=== PATIENT | female | born 1955 | race American Indian/Alaskan Native ===

== ENCOUNTER 2016-09-27 11:29 | Day surgery (SDC) | payer OTHER, BC ==
[~2016-09-27] VITALS: Ht 160 cm; Wt 101.0 kg
[~2016-09-27 11:29] MED LIST: CEFAZOLIN IV 1,000 MG in DEXTROSE 5% 50ML IV SCH; LACTATED RINGER'S 1000ML IV SCH; PATIENT'S ALLERGY INFO NEEDS ENTERED SCH
[2016-09-27 12:20] VITALS: Ht 160 cm; Wt 101.0 kg
[2016-09-27] MEDS ORDERED: CALC500C70 PO (12:28)
[2016-09-27] MEDS ORDERED: CITA10TA8 PO (12:28)
[2016-09-27] MEDS ORDERED: METO1TAB69 PO (12:28)
[2016-09-27] MEDS ORDERED: SYMIN/8045 INH (12:28)
[2016-09-27] MEDS ORDERED: mega red PO (12:28)
[2016-09-27] MEDS ORDERED: ASPI81TA28 PO (12:28)
[2016-09-27] MEDS ORDERED: albuterol inhaler INH (12:28)
[2016-09-27] MEDS ORDERED: LISI-725 PO (12:28)
[2016-09-27] MEDS ORDERED: ASPI-390 PO (12:31)
[2016-09-27] MEDS ORDERED: LIDOCAINE HCL 1% 20 ML VIAL ONE (13:27)
--- NOTE | 2016-09-27 13:42 | History & Physical Bridge Note ---
H&P Re-Evaluation Bridge Note: I have examined the patient, reviewed the History & Physical and in the interval since the performance of the History & Physical I have noted the following changes of clinical significance: No changes noted. I reviewed the indications, procedure, risks and alternatives with her and her family and they understand and she agrees to proceed. Consent obtained.
--- NOTE | 2016-09-27 13:45 | Procedure Note ---
Pre-Mod Sedation Assessment General Date of Moderate Sedation: Sep 27, 2016. Review Cardiovascular: regular rate, rhythm Abdomen: normal bowel sounds Lungs: lungs clear Pre-Sedation Airway Assessment Oral Cavity: WNL Smoking Status: Former Smoker Procedure Planning Contraindications-for Mod Sed: None Yes Notes The planned sedation has been discussed with the patient and consent obtained. I have identified the patient, determined the appropriateness of sedation and have assessed the patient immediately prior to the procedure. All medicine(s) and interventions are by my order.
[2016-09-27] MEDS ORDERED: FENTANYL CITRATE INJ 50 MCG/1 ML 2 ML VIAL ONE (13:49)
[2016-09-27] MEDS ORDERED: MIDAZOLAM HCL 1 MG/ML 2ML VIAL ONE (13:50)
[2016-09-27] MEDS ORDERED: BACITRACIN OINT 0.9 GM PKT ONE (14:05)
--- NOTE | 2016-09-27 14:17 | Cardiology Procedure Brief Nt ---
Preliminary Cardiology Note Procedure Date Sep 27, 2016. Pre-Procedure Diagnosis paroxysmal atrial fibrillation Post-Procedure Diagnosis same Procedure(s) Performed Loop recorder implantation Oil Inspector Dr. Blackwell Executive Relations Specialist(s) none Estimated Blood Loss 2 cc Preliminary Findings Good position Recommendations Monitor very briefly and discharge Specimens None Anesthesia local without sedation Complication(s) None Disposition MTU
--- NOTE | 2016-09-27 14:22 | Discharge Instructions ---
Discharge Instructions Admission Reason for Admission: Paroxysmal atrial fibrillation Discharge Discharge Diagnosis / Problem: loop recorder implantation Discharge Goals Goal(s): Diagnostic testing Activity Recommendations Activity Limitations: resume your previous activity . Instructions / Follow-Up Instructions / Follow-Up ACTIVITY RECOMMENDATIONS: * Do not raise affected arm over head for 2 weeks. SPECIAL CARE INSTRUCTIONS: * If bleeding occurs, apply direct pressure to area for 5 minutes. * Call your doctor if you have severe pain, fever, drainage or bleeding at site. * Keep dressing on and dry. * Keep any scheduled doctor's appointment. * Implant Card - hand held device with website information given. FOLLOW UP VISIT: Dr. Blackwell 09/28/2016, 10:30 AM Current Hospital Diet Patient's current hospital diet: AHA Diet (Heart Healthy) Discharge Diet Recommended Diet: AHA Diet (Heart Healthy) Pending Studies Studies pending at discharge: no Medical Emergencies . Who to Call and When: Medical Emergencies: If at any time you feel your situation is an emergency, please call 911 immediately. . Non-Emergent Contact Non-Emergency issues call your: Primary Care Provider . . "Provider Documentation" section prepared by Rodríguez Blackwell. VTE Core Measure Inpt VTE Proph given/why not?: Treatment not indicated
[2016-09-27 14:25] VITALS: BP 131/79; PULSE 56; TEMP 36.8; O2SAT 94
[2016-09-27] MEDS ORDERED: ACETAMINOPHEN 325 MG TAB PO PRN (14:30)
[2016-09-27 14:54] VITALS: BP 115/82; PULSE 63; TEMP 36.5; O2SAT 94
--- NOTE | 2016-09-27 15:11 | OPERATIVE REPORT ---
DATE OF OPERATION: 09/27/2016 AMBULATORY OPERATIVE REPORT PREOPERATIVE DIAGNOSIS: Paroxysmal atrial fibrillation. POSTOPERATIVE DIAGNOSIS: Same. PROCEDURE: Loop recorder implantation. HISTORY: This is a 60-year-old woman who carries a diagnosis of paroxysmal atrial fibrillation; however, the frequency and extent are unknown. She has palpitations but on evaluation, her palpitations mostly coincide with premature beats and runs of paroxysmal atrial tachycardia. She should be on anticoagulation if she has atrial fibrillation but it is not clear that she has any significant amount of atrial fibrillation. She is therefore brought to the laboratory for loop recorder implantation to identify frequency and duration of atrial fibrillation. OPERATION AND FINDINGS: After obtaining informed consent for the procedure, she was brought to the laboratory on the afternoon of 09/27/2016, being n.p.o. after midnight. She was identified in the laboratory, prepped and draped in standard sterile manner for a loop recorder implantation. The left prepectoral region was anesthetized with 1% lidocaine local anesthetic and a 1 cm incision was made at a location about 1 cm to the left of the left sternal border at around the fourth intercostal space. Using the insertion tool, a loop recorder was placed subcutaneously. The incision was closed with a subcutaneous closure of 4-0 Vicryl, followed by a running subcuticular skin closure of 4-0 Vicryl. A Steri-Strip was applied, bacitracin ointment was applied and the site was dressed. The patient tolerated the procedure well, there were no complications and estimated blood loss was 2 mL. The patient was transferred back to the MTU for brief observation prior to discharge. She tolerated the procedure well, there were no complications. The loop recorder is a [employer] LINQ, model LNQ11, serial number [id number]. The device was programmed in the laboratory. ROBERTO
== END 2016-09-27 15:00 | disposition home or self-care (01) ==
LOC: C.ACU 11:29
PROVIDERS: ATTEND Internal Medicine Cardiovascular Disease
DX: I48.0 Paroxysmal atrial fibrillation (principal); R00.1 Bradycardia, unspecified; I25.10 Atherosclerotic heart disease of native coronary artery without angina pectoris; I25.2 Old myocardial infarction; I34.0 Nonrheumatic mitral (valve) insufficiency; I10 Essential (primary) hypertension; E78.5 Hyperlipidemia, unspecified

== ENCOUNTER → 2017-07-22 | Outpatient (CLI) | payer BC, OTHER ==
[~2017-07-22] MED LIST changes: +ASPI-390 PO; +ASPI81TA28 PO; +CALC500C70 PO; -CEFAZOLIN IV 1,000 MG in DEXTROSE 5% 50ML IV SCH; +CITA10TA8 PO; -LACTATED RINGER'S 1000ML IV SCH; +LISI-725 PO; +METO100T44 PO; -PATIENT'S ALLERGY INFO NEEDS ENTERED SCH; +SYMIN/8045 INH; +albuterol inhaler INH; +mega red PO
[2017-07-22 12:46] LABS: BASO % 0.1 %; BASO ABS # 0.01 K/uL (0-0.2); COMPLETE YES; EOS % 3.1 %; HEMATOCRIT 41.2 % (37-47); IG% 0.1 %; LYMPH % 37.3 %; LYMPH ABS # 3.13 K/uL (1.2-3.4); MEAN CELL VOLUME 92.8 fL (80-100); MEAN CORPUSCULAR HEMOGLOBIN 30.4 pg (25-34); MEAN CORPUSCULAR HGB CONC 32.8 g/dl (32-36); MEAN PLATELET VOLUME 9.8 fL (7.4-10.4); MONO % 6.8 %; NEUT % 52.6 %; PLATELET COUNT 328 K/uL (130-400); RED BLOOD COUNT 4.44 M/uL (4.2-5.4); WHITE BLOOD COUNT 8.39 K/uL (4.8-10.8)
[2017-07-22 13:11] LABS: ALT/SGPT 21 U/L (12-78); BLOOD UREA NITROGEN 18 mg/dl (7-18); BUN/CREATININE RATIO 19.7 (10-20); CALCIUM 8.9 mg/dl (8.5-10.1); CARBON DIOXIDE 27 mmol/L (21-32); CHLORIDE 107 mmol/L (98-107); CHOLESTEROL 171 mg/dl (0-200); CREATININE 0.91 mg/dl (0.60-1.20); GLUCOSE 109 mg/dl (70-99); POTASSIUM 4.4 mmol/L (3.5-5.1); SODIUM 141 mmol/L (136-145); TRIGLYCERIDES 105 mg/dl (0-150); VERY LOW DENSITY LIPOPROT CALC 21 mg/dl
[2017-07-22 13:22] LABS: ALB/GLOB RATIO 1.2 (0.9-2); ALKALINE PHOSPHATASE 73 U/L (45-117); AST/SGOT 13 U/L (15-37); CHOLESTEROL/HDL RATIO 3.4; HDL CHOLESTEROL 51 mg/dl; LDL CHOLESTEROL CALCULATED 99 mg/dl
== END | disposition home or self-care (01) ==
LOC: C.LABMFLN 07:17
PROVIDERS: ATTEND Family Medicine
DX: I10 Essential (primary) hypertension (principal); E78.5 Hyperlipidemia, unspecified